=== PATIENT | male | born 2000 | race Hispanic/Latino ===

== ENCOUNTER 2023-06-18 19:16 | Emergency (ER) | payer SELFPAY ==
[2023-06-18 19:18] VITALS: BP 130/78; PULSE 93; RESP 18; TEMP 36.5; O2SAT 99
--- NOTE | 2023-06-18 20:11 | ED.GENADULT ---
HPI - General Adult General Chief complaint: Epistaxis Stated complaint: nose bleed Time Seen by Provider: 06/18/23 19:29 History of Present Illness HPI narrative: 22-year-old male history of nose bleeds presenting for nose bleed. Started 20 minutes prior to arrival. He has been holding pressure. He frequently has nose bleeds that usually resolve without intervention. The use of blood thinners. Related Data Allergies Allergy/AdvReac Type Severity Reaction Status Date / Time shellfish derived Allergy Anaphylaxis Verified 06/18/23 19:21 [facility], [facility] Past Medical History Medical History Epistaxis Exam Narrative: APPEARANCE: No apparent distress. Head: atraumatic. EYES: EOMI, NOSE: No active bleeding, no areas excoriation in the anterior nasopharynx NECK: Trachea midline RESPIRATORY: No increased rate of breathing CARDIOVASCULAR: RRR, ABDOMINAL: Non-distended MUSCULOSKELETAl: No obvious deformities NEURO: Alert. Moving 4/4 extremities SKIN:: Warm, dry. Normal color PSYCHIATRIC: Normal affect Course Vital Signs Vital signs: Vital Signs Temperature 97.7 F 06/18/23 19:18 Pulse Rate 93 06/18/23 19:18 Respiratory Rate 18 06/18/23 19:18 Blood Pressure 130/78 06/18/23 19:18 Pulse Oximetry 99 06/18/23 19:18 Oxygen Delivery Room Air 06/18/23 19:18 Temperature 97.7 F 06/18/23 19:18 Pulse Rate 93 06/18/23 19:18 Respiratory Rate 18 06/18/23 19:18 Blood Pressure 130/78 06/18/23 19:18 Pulse Oximetry 99 06/18/23 19:18 Oxygen Delivery Room Air 06/18/23 19:18 Medical Decision Making MDM Narrative Medical decision making narrative: -Course: 22-year-old presenting with epistaxis. Bleeding was controlled with Afrin and direct pressure. Patient discharged. -DDX includes but is not limited to: Epistaxis, digital trauma -Procedures: Epistaxis control -Shared decision making / Disposition: Discharged Vital Signs Vital Signs: Vital Signs Temperature 97.7 F 06/18/23 19:18 Pulse Rate 93 06/18/23 19:18 Respiratory Rate 18 06/18/23 19:18 Blood Pressure 130/78 06/18/23 19:18 Pulse Oximetry 99 06/18/23 19:18 Oxygen Delivery Room Air 06/18/23 19:18 Temperature 97.7 F 06/18/23 19:18 Pulse Rate 93 06/18/23 19:18 Respiratory Rate 18 06/18/23 19:18 Blood Pressure 130/78 06/18/23 19:18 Pulse Oximetry 99 06/18/23 19:18 Oxygen Delivery Room Air 06/18/23 19:18 Discharge Plan Discharge Clinical Impression: Epistaxis Patient Disposition: Home, Self-Care Condition: Stable Instructions: Antibiotic Form, Nosebleed (ED) Additional Instructions: Please control your nose bleeds with direct pressure. If you continue to have nose please follow-up with ENT. Return if you are unable to control your nose bleeds. Follow-up/Referrals: Teja Walls MD [Physician] - 1 Week (recurrent nosebleeds ) UNKNOWN,DOCTOR [Primary Care Provider] -
== END 2023-06-18 20:24 | disposition home or self-care (01) ==
PROVIDERS: Emergency Provider Emergency Medicine
DX: R04.0 Epistaxis (principal)
CPT/HCPCS: 99283; A9270